=== PATIENT | female | born 1995 | race Caucasian/White ===

== ENCOUNTER 2016-08-14 16:53 | Emergency (ER) | payer OTHER ==
[~2016-08-14] VITALS: Ht 177.8 cm; Wt 108.2 kg
[~2016-08-14 16:53] MED LIST: ANAPROX DS550 MG PO; CELEXA 20MG20 MG/TAB PO
[2016-08-14 16:58] VITALS: BP 133/74; TEMP 97.7
[2016-08-14] MEDS ORDERED: EFFEXOR-XR150 MG PO (17:01)
[2016-08-14] MEDS ORDERED: LOESTRIN 1/20 28 DAY PO (17:01)
[2016-08-14] MEDS ORDERED: BUSPAR10 MG PO (17:01)
[2016-08-14] MEDS ORDERED: ATARAX 10MG10 MG/TAB PO (17:02)
[2016-08-14 17:47] LABS: BASO % 0.3 % (0.0-2.0); EOS % 0.1 % (0-4.0); GRAN # 6.1 (1.4-6.5); GRAN % 56.4 % (42.2-75.2); HEMATOCRIT 44.7 % (35.0-45.0); HEMOGLOBIN 15.3 g/dl (12.0-15.0); LYMPH # 3.9 (1.2-3.4); MEAN CELL VOLUME 92 fl (80.0-95.0); MEAN CORPUSCULAR HEMOGLOBIN 31 pg (26.0-32.0); MEAN CORPUSCULAR HGB CONC 34 g/dl (33.0-37.0); MEAN PLATELET VOLUME 10.1 fl (7.4-10.4); MONO # 0.8 (0.1-0.6); MONO % 6.9 % (1.7-9.3); PLATELET COUNT 356 K/mm3 (130-400); RED BLOOD COUNT 4.88 M/mm3 (4.10-5.30); REDCELL DISTRIBUTION WIDTH-CV 12.7 % (11.5-14.5); WHITE BLOOD COUNT 10.8 K/mm3 (4.8-10.8)
[2016-08-14 17:57] LABS: ADJUSTED CALCIUM 9.6 mg/dL (8.4-10.2); ALBUMIN 4.9 gm/dL (3.5-5.0); BILIRUBIN,TOTAL 0.7 mg/dL (0.0-1.0); CALCIUM 10.3 mg/dL (8.4-10.2); CREATININE, serum 0.73 mg/dL (0.52-1.25); POTASSIUM 3.7 mmol/L (3.4-5.0); TOTAL PROTEIN 8.6 gm/dL (6.4-8.2)
[2016-08-14] MEDS ORDERED: PHENERGAN 25 TA25 MG PO (19:17)
[2016-08-14 19:43] VITALS: PULSE 72
== END 2016-08-14 19:45 | disposition home or self-care (01) ==
LOC: COL.ER 16:53
PROVIDERS: Emergency Medicine
DX: K52.9 Noninfective gastroenteritis and colitis, unspecified (principal)
CPT/HCPCS: J2405; J2550; J7030